=== PATIENT | female | born 1960 | race Two or more races ===

== ENCOUNTER 2019-04-07 10:07 | Emergency (ER) | payer MEDICAID, OTHER ==
[~2019-04-07] VITALS: Ht 162.6 cm; Wt 68.0 kg
--- NOTE | 2019-04-07 10:10 | NUR ---
BIB [facility] FROM HOME,AMS PER CAREGIVER DESCRIBED "PLAYING WITH CAT","NORMALLY DOESN'T PLAY WITH THE CAT" PATIENT A/OX2, WITH EPISODE OF CONFUSION, PER DAUGHTER (AT BEDSIDE) PATIENT IS "ACTING WEIRD." PATIENT APPEARS TO BE RESTLESS. PATIENT PLACED ON A GOWN, ATTACHED TO THE BUSINESS TECHNOLOGY TEACHER.
[2019-04-07] MEDS ORDERED: LORAZEPAM INJ 2 MG/ML VIAL IV ONE (10:30)
[2019-04-07] MEDS ORDERED: LORAZEPAM INJ 2 MG/ML VIAL ONE (10:41)
[2019-04-07] MEDS ORDERED: CALC-1026 PO (10:41)
[2019-04-07] MEDS ORDERED: CHOL200059 PO (10:41)
[2019-04-07 10:44] LABS: BASOPHILS # (AUTO) 0.1 /CMM (0.0-0.2); BASOPHILS % (AUTO) 0.8 % (0.0-2.0); HEMATOCRIT 47 % (33-45); HEMOGLOBIN 15.9 g/dL (11.5-14.8); LYMPHOCYTES # (AUTO) 0.8 /CMM (0.8-4.8); LYMPHOCYTES % (AUTO) 11.2 % (20.0-44.0); MEAN CORPUSCULAR HGB CONC 34 g/dl (31.0-36.0); MEAN CORPUSCULAR VOLUME 96 fL (82-100); MONOCYTES # (AUTO) 0.4 /CMM (0.1-1.30); MONOCYTES % (AUTO) 5.9 % (2.0-12.0); NEUTROPHILS # (AUTO) 5.6 /CMM (1.8-8.9); NEUTROPHILS % (AUTO) 81.1 % (43.0-81.0); PLATELET COUNT (AUTO) 266 /CMM (150-450); RED BLOOD CELL COUNT(AUTO) 4.88 MIL/uL (4.0-5.2); WHITE BLOOD COUNT (AUTO) 6.9 K/uL (4.3-11.0)
[2019-04-07 10:49] LABS: CALCIUM, SERUM 9.8 mg/dL (8.5-10.1); CARBON DIOXIDE 28 mmol/L (21-32); CHLORIDE 105 mmol/L (98-107); CREATININE 0.7 mg/dL (0.6-1.3); GLUCOSE 132 mg/dL (74-106); POTASSIUM 3.3 mmol/L (3.5-5.1); SODIUM SERUM 144 mmol/L (136-145); UREA NITROGEN, BLOOD 15 mg/dL (7-18)
[2019-04-07 10:55] LABS: ALANINE AMINOTRANSFERASE 31 U/L (12-78); ALBUMIN 4.3 g/dL (3.4-5.0); ALKALINE PHOSPHATASE 189 U/L (46-116); ASPARTATE AMINOTRANSFERASE 24 U/L (15-37); BILIRUBIN,DIRECT 0.1 mg/dL (0.0-0.2); BILIRUBIN,TOTAL 0.5 mg/dL (0.2-1.0); TOTAL PROTEIN, SERUM 9.4 g/dL (6.4-8.2)
--- NOTE | 2019-04-07 11:20 | NUR ---
SPOKE WITH KAREN BARAHONA CM. GAVE REPORT. PATIENT ASSISTED TO RESTROOM. URINE SAMPLE OBTAINED AND SENT TO LAB.
[2019-04-07 11:22] LABS: THYROID STIMULATING HORMONE 1.638 uIU/mL (0.358-3.74)
--- NOTE | 2019-04-07 11:38 | NUR ---
TURNED IN MOVE SHEET ALONG WITH CLINICALS; PT CAPPED TO [facility].
[2019-04-07 12:06] LABS: APPEARANCE,URINE Clear (CLEAR); BILIRUBIN,URINE Negative (NEGATIVE); BLOOD, URINE Moderate Ery/uL (NEGATIVE); COLOR,URINE Yellow (YELLOW); KETONES,URINE >=160 (NEGATIVE); LEUKOCYTE ESTERASE ,URINE Negative (NEGATIVE); NITRITE, URINE Negative (NEGATIVE); PROTEIN,URINE Negative (NEGATIVE); UGLUCOSE Negative (NEGATIVE); UROBILINOGEN,URINE 0.2 EU/dL (0.2)
[2019-04-07 12:52] LABS: BACTERIA,URINE Few /HPF (None Seen); SQUAMOUS EPITHELIAL CELL,UR Few /HPF (None Seen)
[2019-04-07 13:15] VITALS: BP 150/73
--- NOTE | 2019-04-07 15:16 | NUR ---
CALLED FOR S TRANSPORT TO [facility], ETA 1615 ([facility]) TRIP [phone]
--- NOTE | 2019-04-07 15:42 | NUR ---
GAVE REPORT TO LI SAXENA PATIENT WILL GO TO ROOM 510B. PHONE# . ACCEPTED BY DR. RENEE.
--- NOTE | 2019-04-07 16:11 | NUR ---
PATIENT TRANSFERRED TO [facility], TO ROOM 510B, IN STABLE CONDITION, VS STABLE. REPORT GIVEN TO EMT. DISCHARGE PAPERWORKS PROVIDED. DAUGHTER AT BEDSIDE.
== END 2019-04-07 16:12 | disposition short-term general hospital (02) ==
LOC: ER 10:12
DX: G93.40 Encephalopathy, unspecified (principal); R41.82 Altered mental status, unspecified; Z86.73 Personal history of transient ischemic attack (TIA), and cerebral infarction without residual deficits
CPT/HCPCS: 36415; 70450; 71045; 80048; 80076; 80305; 81001; 84443; 84484; 85025; 93005; 96374; 99285; J2060; 81000-TC